=== PATIENT | male | born 1985 | race Caucasian/White ===

== ENCOUNTER 2016-03-22 15:23 | Emergency (ER) | payer OTHER ==
[~2016-03-22] VITALS: Ht 177.8 cm; Wt 76.0 kg
[~2016-03-22 15:23] MED LIST: ADVIL,NUPRIN,M200 MG PO; BACTRIM,SEPT1 TABLET PO; CLEOCIN300 MG PO; KEFLEX500 MG PO; MOTRIN600 MG PO; MOTRIN800 MG PO; NICOTINE PATCH1 EACH TD; OXYCODONE-ACET500 ML PO; PROMETHAZINE HC25 M1 PO; TRAZODONE HCL50 MG PO; ULTRAM50 MG PO; VANCOMYCIN1.25 GM/25 IV
[2016-03-22] MEDS ORDERED: LIDODERM 5% P1 PATCH TD (15:48)
[2016-03-22] MEDS ORDERED: BACLOFEN10 MG PO (15:48)
[2016-03-22] MEDS ORDERED: NAPROSYN500 MG PO (15:48)
[2016-03-22 16:35] VITALS: BP 114/75
== END 2016-03-22 16:39 | disposition home or self-care (01) ==
LOC: EME 15:23
DX: S39.012A Strain of muscle, fascia and tendon of lower back, initial encounter (principal); M79.604 Pain in right leg; F17.200 Nicotine dependence, unspecified, uncomplicated
CPT/HCPCS: 99281; 99284; J3010

== ENCOUNTER 2016-07-08 18:04 | Emergency (ER) | payer OTHER ==
[~2016-07-08] VITALS: Ht 167.6 cm; Wt 81.8 kg
[~2016-07-08 18:04] MED LIST changes: +BACLOFEN10 MG PO; +LIDODERM 5% P1 PATCH TD; +NAPROSYN500 MG PO
[2016-07-08 19:45] VITALS: BP 130/82
== END 2016-07-08 19:46 | disposition home or self-care (01) ==
LOC: EME 18:04
DX: H11.31 Conjunctival hemorrhage, right eye (principal); F17.200 Nicotine dependence, unspecified, uncomplicated; Z88.1 Allergy status to other antibiotic agents
CPT/HCPCS: 99281; 99283

== ENCOUNTER 2017-01-25 10:17 | Inpatient (IN) | payer OTHER ==
[~2017-01-25] VITALS: Ht 177.8 cm; Wt 62.7 kg
[2017-01-25 11:46] LABS: CHLORIDE 102 mEq/L (99-109); POTASSIUM 4.7 mEq/L (3.7-5.4); SODIUM 138 mEq/L (136-147)
[2017-01-25 11:48] LABS: GLUCOSE 80 mg/dL (70-99)
[2017-01-25 11:49] LABS: ANION GAP 8 MEQ/L (2-14)
[2017-01-25 11:50] LABS: TOTAL BILIRUBIN 0.4 mg/dL (0.0-1.0)
[2017-01-25 11:51] LABS: ALKALINE PHOSPHATASE 66 IU/L (3-129)
[2017-01-25 11:52] LABS: GFR ESTIMATE (CALCULATED) > 59 mL/min/ (58.99-99999)
[2017-01-25 11:53] LABS: UREA NITROGEN (BUN) 10 mg/dL (9-23)
[2017-01-25 12:05] LABS: BASOPHIL COUNT 0.1 K/uL (0-0.1); EOSINOPHIL (%) 5.6 % (0-5); EOSINOPHIL COUNT 0.5 K/uL (0-0.3); HEMATOCRIT 37.7 % (38.0-50.0); IMMATURE GRANULOCYTE (%) 0.3 % (0.0-0.7); INSTRUMENT ABS NEUTROPHIL CT 6.1 K/uL; LYMPHOCYTE COUNT 1.5 K/uL (1.0-2.8); MCH 21.9 PG (29.0-34.0); MCV 72.9 FL (86-99); MEAN PLAT.VOLUME 9.3 uM^3 (9.0-12.4); MONOCYTE (%) 8.5 % (3-12); MONOCYTE COUNT 0.8 K/uL (0-0.8); NEUTROPHIL (%) 68.3 % (45-76); NEUTROPHIL COUNT 6.1 K/uL (1.8-6.4); PLATELET COUNT 397 K/uL (156-360); RBC DIS.WIDTH-CV 18.5 % (11.8-14.6); RBC DIS.WIDTH-SD 47.2 % (39-53); RED BLOOD COUNT 5.17 M/uL (4.00-5.50); WHITE BLOOD COUNT 8.9 K/uL (4.1-10.2)
[2017-01-25 12:21] LABS: C-REACTIVE PROTEIN 11.4 MG/L (0-10); SAMPLE HEMOLYSIS CHECK 0; SAMPLE ICTERIC CHECK 0; SAMPLE LIPEMIA CHECK 0
[2017-01-25 12:42] LABS: ERTH.SED.RATE 38 MM/HR (0-15)
[2017-01-25] MEDS ORDERED: FLUOXETINE HCL20 MG PO (13:39)
[2017-01-25 20:26] LABS: HEMATOCRIT 36.3 % (38.0-50.0); MCV 73.3 FL (86-99)
[2017-01-25 21:13] VITALS: BP 1338/82
[2017-01-25 23:50] VITALS: BP 116/68
[2017-01-26 03:52] VITALS: BP 113/69
[2017-01-26 07:22] LABS: HEMATOCRIT 36.7 % (38.0-50.0); MCV 73.1 FL (86-99)
[2017-01-26 07:48] VITALS: BP 120/66
[2017-01-26 08:10] LABS: ANION GAP 9 MEQ/L (2-14); CHLORIDE 102 MEQ/L (99-109); GFR ESTIMATE (CALCULATED) > 59 mL/min/ (58.99-99999); GLUCOSE 76 mg/dL (70-99); POTASSIUM 4.4 MEQ/L (3.7-5.4); SAMPLE HEMOLYSIS CHECK 0; SAMPLE ICTERIC CHECK 0; SAMPLE LIPEMIA CHECK 0; SODIUM 139 MEQ/L (136-147); UREA NITROGEN (BUN) 6 mg/dL (9-23)
[2017-01-26 11:33] VITALS: BP 124/64
[2017-01-26 15:16] LABS: TROP-I INTERPRETATION NEGATIVE; TROPONIN-I < 0.01 ng/mL (0.0-0.30)
[2017-01-26 15:46] VITALS: BP 119/69
[2017-01-26 20:02] VITALS: BP 128/68
[2017-01-26 20:39] LABS: HEMATOCRIT 33.2 % (38.0-50.0); MCV 73.8 FL (86-99)
[2017-01-27 00:14] VITALS: BP 134/59
[2017-01-27 04:37] VITALS: BP 119/68
[2017-01-27 07:36] VITALS: BP 112/81
[2017-01-27 19:45] VITALS: BP 130/69
[2017-01-27 20:10] LABS: HEMATOCRIT 30.7 % (38.0-50.0); MCV 73.1 FL (86-99)
[2017-01-27 23:56] VITALS: BP 121/73
[2017-01-28 04:08] VITALS: BP 121/70
[2017-01-28 07:53] LABS: HEMATOCRIT 31.3 % (38.0-50.0); MCV 77.3 FL (86-99)
[2017-01-28 10:42] LABS: HEMATOCRIT 32.2 % (38.0-50.0); MCV 72.7 FL (86-99)
[2017-01-28 11:51] VITALS: BP 120/69
[2017-01-28 19:45] VITALS: BP 118/77
[2017-01-28 19:56] LABS: HEMATOCRIT 30.3 % (38.0-50.0); MCV 73.4 FL (86-99)
[2017-01-29 00:17] VITALS: BP 130/78
[2017-01-29 03:41] VITALS: BP 110/67
[2017-01-29 07:37] VITALS: BP 116/69
[2017-01-29 09:26] LABS: HEMATOCRIT 31.1 % (38.0-50.0); MCH 22.3 PG (29.0-34.0); MCHC 30.2 G/DL (30.0-36.0); MCV 73.9 FL (86-99); MEAN PLAT.VOLUME 9.2 uM^3 (9.0-12.4); PLATELET COUNT 307 K/uL (156-360); RBC DIS.WIDTH-CV 18.5 % (11.8-14.6); RBC DIS.WIDTH-SD 48.9 % (39-53); RED BLOOD COUNT 4.21 M/uL (4.00-5.50)
[2017-01-29 10:02] LABS: ANION GAP 8 MEQ/L (2-14); CHLORIDE 100 MEQ/L (99-109); GFR ESTIMATE (CALCULATED) > 59 mL/min/ (58.99-99999); GLUCOSE 90 mg/dL (70-99); MAGNESIUM 1.9 mg/dl (1.3-2.7); POTASSIUM 4.4 MEQ/L (3.7-5.4); SAMPLE HEMOLYSIS CHECK 0; SAMPLE ICTERIC CHECK 0; SAMPLE LIPEMIA CHECK 0; SODIUM 137 MEQ/L (136-147); UREA NITROGEN (BUN) 10 mg/dL (9-23)
[2017-01-29 19:48] LABS: HEMATOCRIT 32.1 % (38.0-50.0)
[2017-01-29 20:18] VITALS: BP 126/81
[2017-01-30 00:11] VITALS: BP 120/65
[2017-01-30 04:18] VITALS: BP 115/72
[2017-01-30 07:35] LABS: ANION GAP 8 MEQ/L (2-14); CHLORIDE 98 MEQ/L (99-109); GFR ESTIMATE (CALCULATED) > 59 mL/min/ (58.99-99999); POTASSIUM 4.1 MEQ/L (3.7-5.4); SAMPLE HEMOLYSIS CHECK 0; SAMPLE ICTERIC CHECK 0; SAMPLE LIPEMIA CHECK 0; SODIUM 136 MEQ/L (136-147); UREA NITROGEN (BUN) 11 mg/dL (9-23)
[2017-01-30 07:36] LABS: GLUCOSE 120 mg/dL (70-99)
[2017-01-30 07:59] LABS: HEMATOCRIT 30.2 % (38.0-50.0); MCH 22.1 PG (29.0-34.0); MCHC 30.1 G/DL (30.0-36.0); MCV 73.3 FL (86-99); MEAN PLAT.VOLUME 9.1 uM^3 (9.0-12.4); PLATELET COUNT 340 K/uL (156-360); RBC DIS.WIDTH-CV 18.4 % (11.8-14.6); RBC DIS.WIDTH-SD 48.2 % (39-53); RED BLOOD COUNT 4.12 M/uL (4.00-5.50); WHITE BLOOD COUNT 5.8 K/uL (4.1-10.2)
[2017-01-30 08:03] VITALS: BP 132/74
[2017-01-30 12:29] VITALS: BP 107/62
[2017-01-30 15:31] VITALS: BP 124/71
[2017-01-30 19:20] VITALS: BP 117/69
[2017-01-30 20:09] LABS: HEMATOCRIT 30.7 % (38.0-50.0); MCV 72.7 FL (86-99)
[2017-01-31] VITALS (7 sets, daily range): BP systolic 96–136; BP diastolic 50–73
[2017-01-31 10:40] LABS: HEMATOCRIT 30.4 % (38.0-50.0); MCV 73.8 FL (86-99)
[2017-01-31 10:44] LABS: HIV INDEX 0.07; HIV-1/2 AB/AG COMBO Nonreactive
[2017-01-31 20:18] LABS: HEMATOCRIT 29.2 % (38.0-50.0); MCV 74.1 FL (86-99)
[2017-02-01 04:18] VITALS: BP 118/69
[2017-02-01 06:22] LABS: HEMATOCRIT 28.4 % (38.0-50.0); MCV 73.4 FL (86-99)
[2017-02-01 08:17] VITALS: BP 119/66
[2017-02-01 16:36] VITALS: BP 116/65
[2017-02-01 19:42] LABS: HEMATOCRIT 28.3 % (38.0-50.0); MCV 73.7 FL (86-99)
[2017-02-01 19:54] VITALS: BP 123/74
[2017-02-01 23:22] VITALS: BP 119/72
[2017-02-02 06:43] LABS: HEMATOCRIT 28.7 % (38.0-50.0)
[2017-02-02 07:11] VITALS: BP 107/57
[2017-02-02 15:02] VITALS: BP 121/63
[2017-02-02 15:51] VITALS: BP 123/68
[2017-02-02 20:12] VITALS: BP 113/60
[2017-02-02 20:20] LABS: HEMATOCRIT 27.1 % (38.0-50.0); MCV 73.4 FL (86-99)
[2017-02-03 00:33] VITALS: BP 115/82
[2017-02-03 04:58] VITALS: BP 111/70
[2017-02-03 08:10] VITALS: BP 108/67
[2017-02-03 16:00] VITALS: BP 92/56
[2017-02-04 00:14] VITALS: BP 110/58
[2017-02-04 07:00] LABS: HEMATOCRIT 26.6 % (38.0-50.0); MCV 72.5 FL (86-99)
[2017-02-04 07:52] VITALS: BP 106/61
[2017-02-04 16:25] VITALS: BP 105/69
[2017-02-04 23:27] VITALS: BP 105/58
[2017-02-05 07:10] VITALS: BP 101/55
[2017-02-05 07:48] LABS: HEMATOCRIT 27.7 % (38.0-50.0); MCV 72.3 FL (86-99)
[2017-02-05 13:54] LABS: MCH 21.6 PG (29.0-34.0); MCHC 29.5 G/DL (30.0-36.0); PLATELET COUNT 331 K/uL (156-360); RBC DIS.WIDTH-CV 18.5 % (11.8-14.6); RBC DIS.WIDTH-SD 49.1 % (39-53); RED BLOOD COUNT 3.84 M/uL (4.00-5.50); WHITE BLOOD COUNT 5.9 K/uL (4.1-10.2)
[2017-02-05 15:41] VITALS: BP 117/66
[2017-02-06] VITALS (7 sets, daily range): BP systolic 88–130; BP diastolic 53–76
[2017-02-06 06:34] LABS: HEMATOCRIT 26.2 % (38.0-50.0); MCH 21.5 PG (29.0-34.0); MCHC 29.8 G/DL (30.0-36.0); MCV 72.4 FL (86-99); MEAN PLAT.VOLUME 8.5 uM^3 (9.0-12.4); PLATELET COUNT 375 K/uL (156-360); RBC DIS.WIDTH-CV 17.9 % (11.8-14.6); RBC DIS.WIDTH-SD 47.2 % (39-53); RED BLOOD COUNT 3.62 M/uL (4.00-5.50); WHITE BLOOD COUNT 6.9 K/uL (4.1-10.2)
[2017-02-06 06:51] LABS: ANION GAP 5 MEQ/L (2-14); CHLORIDE 103 MEQ/L (99-109); GFR ESTIMATE (CALCULATED) > 59 mL/min/ (58.99-99999); GLUCOSE 141 mg/dL (70-99); POTASSIUM 4.3 MEQ/L (3.7-5.4); SAMPLE HEMOLYSIS CHECK 0; SAMPLE ICTERIC CHECK 0; SAMPLE LIPEMIA CHECK 0; SODIUM 138 MEQ/L (136-147); UREA NITROGEN (BUN) 12 mg/dL (9-23)
[2017-02-07 07:03] LABS: HEMATOCRIT 28.7 % (38.0-50.0); MCV 74.4 FL (86-99)
[2017-02-07 07:37] VITALS: BP 107/59
[2017-02-07 16:44] VITALS: BP 106/57
[2017-02-07 23:33] VITALS: BP 98/54
[2017-02-08 06:14] LABS: EOSINOPHIL (%) 0 % (0-5); HEMATOCRIT 29.6 % (38.0-50.0); INSTRUMENT ABS NEUTROPHIL CT 2.6 K/uL; LYMPHOCYTE COUNT 0.7 K/uL (1.0-2.8); MCH 22.7 PG (29.0-34.0); MCHC 31.1 G/DL (30.0-36.0); MCV 72.9 FL (86-99); MEAN PLAT.VOLUME 8.5 uM^3 (9.0-12.4); MONOCYTE (%) 14.3 % (3-12); MONOCYTE COUNT 0.6 K/uL (0-0.8); NEUTROPHIL (%) 66.2 % (45-76); NEUTROPHIL COUNT 2.6 K/uL (1.8-6.4); PLATELET COUNT 324 K/uL (156-360); RBC DIS.WIDTH-CV 18.6 % (11.8-14.6); RBC DIS.WIDTH-SD 48.8 % (39-53); RED BLOOD COUNT 4.06 M/uL (4.00-5.50); WHITE BLOOD COUNT 3.9 K/uL (4.1-10.2)
[2017-02-08 06:54] LABS: ALKALINE PHOSPHATASE 59 IU/L (3-129); ANION GAP 8 MEQ/L (2-14); CHLORIDE 100 MEQ/L (99-109); GFR ESTIMATE (CALCULATED) > 59 mL/min/ (58.99-99999); POTASSIUM 4.1 MEQ/L (3.7-5.4); SAMPLE HEMOLYSIS CHECK 0; SAMPLE ICTERIC CHECK 0; SAMPLE LIPEMIA CHECK 0; SODIUM 138 MEQ/L (136-147); TOTAL BILIRUBIN 0.9 MG/DL (0.0-1.0); UREA NITROGEN (BUN) 11 mg/dL (9-23)
[2017-02-08 06:56] LABS: GLUCOSE 97 mg/dL (70-99)
[2017-02-08 08:02] VITALS: BP 99/62
[2017-02-08 23:27] VITALS: BP 88/63
[2017-02-09 06:53] LABS: ANION GAP 8 MEQ/L (2-14); CHLORIDE 99 MEQ/L (99-109); GFR ESTIMATE (CALCULATED) > 59 mL/min/ (58.99-99999); GLUCOSE 110 mg/dL (70-99); SAMPLE HEMOLYSIS CHECK 0; SAMPLE ICTERIC CHECK 0; SAMPLE LIPEMIA CHECK 0; SODIUM 135 MEQ/L (136-147); UREA NITROGEN (BUN) 14 mg/dL (9-23)
[2017-02-09 07:09] LABS: EOSINOPHIL (%) 0.3 % (0-5); IMMATURE GRANULOCYTE (%) 0.6 % (0.0-0.7); INSTRUMENT ABS NEUTROPHIL CT 2.3 K/uL; LYMPHOCYTE COUNT 0.6 K/uL (1.0-2.8); MCH 23.4 PG (29.0-34.0); MCHC 31.7 G/DL (30.0-36.0); MCV 73.8 FL (86-99); MONOCYTE (%) 13.6 % (3-12); MONOCYTE COUNT 0.5 K/uL (0-0.8); NEUTROPHIL (%) 67.2 % (45-76); NEUTROPHIL COUNT 2.3 K/uL (1.8-6.4); RBC DIS.WIDTH-CV 18.8 % (11.8-14.6); RBC DIS.WIDTH-SD 50.3 % (39-53); RED BLOOD COUNT 3.93 M/uL (4.00-5.50); WHITE BLOOD COUNT 3.4 K/uL (4.1-10.2)
[2017-02-09 08:01] VITALS: BP 88/53
[2017-02-09 09:57] LABS: MEAN PLAT.VOLUME 8.8 uM^3 (9.0-12.4); PLATELET COUNT 266 K/uL (156-360)
[2017-02-09 15:27] VITALS: BP 96/59
[2017-02-09 23:52] VITALS: BP 88/54
[2017-02-10 00:26] VITALS: BP 99/62
[2017-02-10 00:30] VITALS: BP 99/62
[2017-02-10 06:33] LABS: EOSINOPHIL (%) 0.8 % (0-5); HEMATOCRIT 29.1 % (38.0-50.0); IMMATURE GRANULOCYTE (%) 0.3 % (0.0-0.7); INSTRUMENT ABS NEUTROPHIL CT 2.4 K/uL; LYMPHOCYTE COUNT 0.7 K/uL (1.0-2.8); MCH 22.6 PG (29.0-34.0); MCHC 30.9 G/DL (30.0-36.0); MCV 72.9 FL (86-99); MEAN PLAT.VOLUME 8.6 uM^3 (9.0-12.4); MONOCYTE COUNT 0.4 K/uL (0-0.8); NEUTROPHIL (%) 66.5 % (45-76); NEUTROPHIL COUNT 2.4 K/uL (1.8-6.4); PLATELET COUNT 263 K/uL (156-360); RBC DIS.WIDTH-CV 18.6 % (11.8-14.6); RBC DIS.WIDTH-SD 48.4 % (39-53); RED BLOOD COUNT 3.99 M/uL (4.00-5.50); WHITE BLOOD COUNT 3.7 K/uL (4.1-10.2)
[2017-02-10 06:39] LABS: ALKALINE PHOSPHATASE 51 IU/L (3-129); ANION GAP 8 MEQ/L (2-14); CHLORIDE 100 MEQ/L (99-109); GFR ESTIMATE (CALCULATED) > 59 mL/min/ (58.99-99999); GLUCOSE 99 mg/dL (70-99); POTASSIUM 4.1 MEQ/L (3.7-5.4); SAMPLE HEMOLYSIS CHECK 0; SAMPLE ICTERIC CHECK 0; SAMPLE LIPEMIA CHECK 0; SODIUM 136 MEQ/L (136-147); UREA NITROGEN (BUN) 15 mg/dL (9-23)
[2017-02-10 08:11] VITALS: BP 96/54
[2017-02-10 15:45] VITALS: BP 92/57
[2017-02-11 06:32] LABS: EOSINOPHIL (%) 1.1 % (0-5); HEMATOCRIT 27.6 % (38.0-50.0); IMMATURE GRANULOCYTE (%) 0.4 % (0.0-0.7); INSTRUMENT ABS NEUTROPHIL CT 1.6 K/uL; LYMPHOCYTE COUNT 0.7 K/uL (1.0-2.8); MCH 22.8 PG (29.0-34.0); MCHC 30.8 G/DL (30.0-36.0); MONOCYTE (%) 13.5 % (3-12); MONOCYTE COUNT 0.4 K/uL (0-0.8); NEUTROPHIL (%) 59.8 % (45-76); NEUTROPHIL COUNT 1.6 K/uL (1.8-6.4); PLATELET COUNT 273 K/uL (156-360); RBC DIS.WIDTH-CV 18.4 % (11.8-14.6); RED BLOOD COUNT 3.73 M/uL (4.00-5.50); WHITE BLOOD COUNT 2.7 K/uL (4.1-10.2)
[2017-02-11 06:44] LABS: ANION GAP 7 MEQ/L (2-14); CHLORIDE 101 MEQ/L (99-109); GFR ESTIMATE (CALCULATED) > 59 mL/min/ (58.99-99999); GLUCOSE 102 mg/dL (70-99); SAMPLE HEMOLYSIS CHECK 0; SAMPLE ICTERIC CHECK 0; SAMPLE LIPEMIA CHECK 0; SODIUM 137 MEQ/L (136-147); UREA NITROGEN (BUN) 13 mg/dL (9-23)
[2017-02-11 08:56] VITALS: BP 101/64
[2017-02-11] MEDS ORDERED: PROTONIX40 MG PO (10:03)
[2017-02-11] MEDS ORDERED: ACETAMINOPHEN-1 EAC1 PO (10:03)
== END 2017-02-11 12:45 | DRG 375 ==
LOC: EME 10:17 → 5SOUTH 15:20 → EDOF 15:20 → ENRESERV 15:41 → CANRESERV 18:23 → ENRESERV 18:23 → 5SOUTH 21:02 → ENRESERV 02-02 09:27 → 5EAST 02-02 15:34
PROVIDERS: Emergency Medicine; Family Medicine; Hospitalist; Internal Medicine; Nurse Practitioner Adult Health; Physician Assistant Medical
PROC: 0DBP8ZX Excision of Rectum, Via Natural or Artificial Opening Endoscopic, Diagnostic (ICD-10-PCS; principal; 2017-01-29)
PROC: DD0 Radiation Therapy, Gastrointestinal System, Beam Radiation (ICD-10-PCS; 2017-02-02)
PROC: 3E03305 Introduction of Other Antineoplastic into Peripheral Vein, Percutaneous Approach (ICD-10-PCS; 2017-02-05)
PROC: 30233P1 Transfusion of Nonautologous Frozen Red Cells into Peripheral Vein, Percutaneous Approach (ICD-10-PCS; 2017-02-06)
DX: C20 Malignant neoplasm of rectum (principal); F11.20 Opioid dependence, uncomplicated; Z86.14 Personal history of Methicillin resistant Staphylococcus aureus infection; F17.210 Nicotine dependence, cigarettes, uncomplicated; K92.1 Melena; F32.9 Major depressive disorder, single episode, unspecified; G89.29 Other chronic pain; F41.9 Anxiety disorder, unspecified; Z80.0 Family history of malignant neoplasm of digestive organs; D64.9 Anemia, unspecified; E61.1 Iron deficiency
CPT/HCPCS: 71260; 72132; 74177; 76937; 77290; 77307; 77334; 77412; 77417; 77470; 80048; 80053; 82378; 82728; 83735; 84484; 85014; 85018; 85025; 85027; 85651; 86140; 86703; 86850; 86900; 86901; 86920; 88305; 93005; 99281; 99285; C1726; C1894; J1100; J1170; J1626; J1885; J2250; J2270; J2405; J3010; J7030; J7050; J9190; P9016; Q0138; S0028

== ENCOUNTER → 2017-03-06 | Outpatient (CLI) | payer OTHER ==
[~2017-03-06] MED LIST changes: +ACETAMINOPHEN-1 EAC1 PO; +FLUOXETINE HCL20 MG PO; +PROTONIX40 MG PO
== END ==
LOC: AMB 10:00
DX: C20 Malignant neoplasm of rectum (principal); C77.2 Secondary and unspecified malignant neoplasm of intra-abdominal lymph nodes; Z92.21 Personal history of antineoplastic chemotherapy; Z92.3 Personal history of irradiation; R10.9 Unspecified abdominal pain; F19.11 Other psychoactive substance abuse, in remission
CPT/HCPCS: 99211

== ENCOUNTER → 2017-05-17 | Outpatient (CLI) | payer SELFPAY ==
[~2017-05-17] VITALS: Ht 177.8 cm; Wt 83.9 kg
[~2017-05-17] MED LIST changes: +ROXICODONE5 MG PO
[2017-05-17 10:13] LABS: HEMATOCRIT 40.2 % (38.0-50.0); HEMOGLOBIN 13.2 G/DL (12.5-16.6); MCH 27.4 PG (29.0-34.0); MCHC 32.8 G/DL (30.0-36.0); MCV 83.4 FL (86-99); PLATELET COUNT 247 K/uL (156-360); RBC DIS.WIDTH-CV 14.7 % (11.8-14.6); RBC DIS.WIDTH-SD 44.4 % (39-53); RED BLOOD COUNT 4.82 M/uL (4.00-5.50); WHITE BLOOD COUNT 4.6 K/uL (4.1-10.2)
== END | disposition home or self-care (01) ==
LOC: AMB 04-19 09:15
PROVIDERS: Anesthesiology
PROC: 0DJD8ZZ Inspection of Lower Intestinal Tract, Via Natural or Artificial Opening Endoscopic (ICD-10-PCS; principal; 2017-05-17)
DX: C20 Malignant neoplasm of rectum (principal); Z86.14 Personal history of Methicillin resistant Staphylococcus aureus infection; Z53.09 Procedure and treatment not carried out because of other contraindication; F17.200 Nicotine dependence, unspecified, uncomplicated; Z92.21 Personal history of antineoplastic chemotherapy; Z92.3 Personal history of irradiation; Z88.0 Allergy status to penicillin; Z91.030 Bee allergy status
CPT/HCPCS: 85027

== ENCOUNTER → 2017-08-16 | Outpatient (CLI) | payer OTHER ==
[~2017-08-16] MED LIST changes: +OXYCONTIN20 MG PO
== END | disposition home or self-care (01) ==
LOC: AMB 12:57
PROC: 0DJD8ZZ Inspection of Lower Intestinal Tract, Via Natural or Artificial Opening Endoscopic (ICD-10-PCS; principal; 2017-08-16)
DX: C20 Malignant neoplasm of rectum (principal); Z92.21 Personal history of antineoplastic chemotherapy; Z92.3 Personal history of irradiation
CPT/HCPCS: J2250

== ENCOUNTER 2017-09-09 14:42 | Emergency (ER) | payer OTHER ==
[~2017-09-09] VITALS: Ht 177.8 cm; Wt 71.7 kg
[2017-09-09 15:36] LABS: MCH 26.7 PG (29.0-34.0); MCHC 33.5 G/DL (30.0-36.0); MCV 79.9 FL (86-99); PLATELET COUNT 294 K/uL (156-360); RBC DIS.WIDTH-CV 19.6 % (11.8-14.6); RBC DIS.WIDTH-SD 51.4 % (39-53); RED BLOOD COUNT 6.51 M/uL (4.00-5.50)
[2017-09-09 15:41] LABS: HEMOGLOBIN 17.4 G/DL (12.5-16.6)
[2017-09-09 15:47] LABS: CHLORIDE 99 mEq/L (99-109); POTASSIUM 4.6 mEq/L (3.7-5.4); SODIUM 141 mEq/L (136-147)
[2017-09-09 15:48] LABS: GLUCOSE 115 mg/dL (70-99)
[2017-09-09 15:52] LABS: CREATININE 1.1 mg/dL (0.6-1.3); GFR ESTIMATE (CALCULATED) > 59 mL/min/ (58.99-99999)
[2017-09-09 15:59] LABS: ALBUMIN 5.5 g/dL (3.2-4.8)
[2017-09-09 16:03] LABS: TOTAL BILIRUBIN 1.6 mg/dL (0.0-1.0)
[2017-09-09 16:04] LABS: ALKALINE PHOSPHATASE 95 IU/L (3-129)
[2017-09-09 16:06] LABS: UREA NITROGEN (BUN) 21 mg/dL (9-23)
[2017-09-09 16:07] LABS: AST (GOT) 28 IU/L (2-34); DIRECT BILIRUBIN 0.5 mg/dL (0.0-0.3)
[2017-09-09 16:08] LABS: ALT (GPT) 26 IU/L (3-49); LIPASE 12 U/L (1.0-51.0)
[2017-09-09 18:39] LABS: APPEARANCE CLEAR ((CLEAR)); BILIRUBIN NEGATIVE; BLOOD NEGATIVE; COLOR YELLOW ((YELLOW)); GLUCOSE (STRIP) NEGATIVE; KETONES 80; LEUKOCYTES NEGATIVE; NITRITE NEGATIVE; PROTEIN (STRIP) 30; SPECIFIC GRAVITY > 1.060 (1.000-1.030); UCUL ADDED? NO; UROBILINOGEN 0.2 MG/DL (0.2-1.0)
[2017-09-09] MEDS ORDERED: ZOFRAN ODT8 MG PO (19:04)
[2017-09-09 19:26] VITALS: BP 107/79
== END 2017-09-09 19:32 | disposition home or self-care (01) ==
LOC: EME 14:42
DX: R11.2 Nausea with vomiting, unspecified (principal); E86.0 Dehydration; C20 Malignant neoplasm of rectum; Z92.21 Personal history of antineoplastic chemotherapy; Z92.3 Personal history of irradiation; B19.20 Unspecified viral hepatitis C without hepatic coma; Z88.0 Allergy status to penicillin; F17.200 Nicotine dependence, unspecified, uncomplicated
CPT/HCPCS: 74177; 80048; 80076; 81003; 83690; 85027; 99281; 99284; J2405; J3010; J7030